=== PATIENT | male | born 1945 | race Hispanic/Latino ===

== ENCOUNTER 2018-11-21 08:36 | Outpatient (CLI) | payer BC, MEDICARE | END 2018-11-21 08:37 | disposition home or self-care (01) | LOC: C.PAT 08:36 | DX: R33.9 Retention of urine, unspecified (principal) ==

== ENCOUNTER 2018-11-30 05:46 | Inpatient (IN) | payer BC, MEDICARE ==
[2018-11-30 06:28] VITALS: BMI 32.1
[2018-11-30] MEDS ORDERED: Gentamicin 80 mg in 0.9% NS 160 MG/200 ML BAG IVPB ONE (07:40)
[2018-11-30] MEDS ORDERED: cefTRIAXone 1 gm 1 GM/100 ML BAG IVPB ONE (07:40)
[2018-11-30] MEDS ORDERED: Etomidate 20 mg/10ml Inj IV ONE (07:56)
[2018-11-30] MEDS ORDERED: Albuterol HFA 90 mcg/actuation (8 g) ONE (08:06)
[2018-11-30] MEDS ORDERED: Lidocaine Hydrochloride 5 ML INJ ONE (08:39)
[2018-11-30] MEDS ORDERED: ePHEDrine 50 mg/ml Inj ONE (08:40)
--- NOTE | 2018-11-30 09:42 | PCM.SURG1 ---
Surgeon's Initial Post Op Note - Surgeon's Notes Surgeon: Tiki Chin Rodding Machine Tender: none Type of Anesthesia: General LMA Pre-Operative Diagnosis: Urinary retention. BPH Operative Findings: same. Abnormal bladder mucosa Post-Operative Diagnosis: same Operation Performed: cysto. bladder bx and fulg. TURP Specimen/Specimens Removed: urine. prostate Estimated Blood Loss: EBL {In ML}: 60 Blood Products Given: N/A Post-Op Condition: Good Date of Surgery/Procedure: 11/30/18 Time of Surgery/Procedure: 09:30
[2018-11-30] MEDS ORDERED: Albuterol 0.083% Inhal Sol (2.5 mg/3 mL) UD INH PRN (10:24)
[2018-11-30] MEDS: HYDROmorphone 0.5 mg/0.5 ml ISec IVP PRN ×2 (10:39→10:47)
[2018-11-30] MEDS ORDERED: Potassium Ch 20mEq in D5-1/2NS 1,000 ML IV SCH (11:00)
--- NOTE | 2018-11-30 11:49 | CP.PCM.HP ---
<Juan Amaya - Last Filed: 11/30/18 13:55> History of Present Illness - History of Present Illness History of Present Illness: HOSPITALIST SERVICE 73M with a PMHx of HTN, HLD, Lymphoma (on chemo [id number], last dose 2wks ago) w/ Lung Mass R side, bladder lesions seen on previous cystoscopy, is admitted to hospitalist service s/p TURP and cystoscopy with biopsy. Patient experienced urinary retention, sensation of pain bladder fullness and inability to initiate stream after his second course of chemo at [facility] in [place]. Pt needed a pierre at that time, symptoms did not resolve, requiring him to seek urologic intervention. Pt reports no history of BPH or urine retention, denies any history of hematuria. Pt seen in PACU, feeling well, no acute complaints. 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[employer], 50ppy smoker, occasional drinker Allergies: Denies PMD: Dr Ariane Whiting [facility]: [facility] Present on Admission - Present on Admission Any Indicators Present on Admission: No Review of Systems - Review of Systems All systems: reviewed and no additional remarkable complaints except (as per HPI) Past Patient History - Infectious Disease Hx of Infectious Diseases: None - Past Medical History & Family History Past Medical History?: Yes - Past Social History Smoking Status: Former Smoker - CARDIAC Hx Cardiac Disorders: Yes Hx Hypercholesterolemia: Yes Hx Hypertension: Yes Hx Pacemaker: No Other/Comment: cardiac stent - PULMONARY Hx Respiratory Disorders: Yes Hx Chronic Obstructive Pulmonary Disease (COPD): Yes - NEUROLOGICAL Hx Neurological Disorder: No Hx Paralysis: No - HEENT Hx HEENT Problems: No - RENAL Hx Chronic Kidney Disease: No Hx Kidney Stones: Yes - ENDOCRINE/METABOLIC Hx Endocrine Disorders: No - HEMATOLOGICAL/ONCOLOGICAL Hx Blood Disorders: No Hx Blood Transfusions: No Hx Blood Transfusion Reaction: No Hx Cancer: Yes (LYMPHOMA) Hx Chemotherapy: Yes (CURRENTLY WILL HAVE RADIATION) - INTEGUMENTARY Hx Dermatological Problems: No - MUSCULOSKELETAL/RHEUMATOLOGICAL Hx Musculoskeletal Disorders: No Hx Fractures: Yes (LEFT WRIST CASTED AGE 13) Hx Osteoarthritis: Yes Other/Comment: HAD KNEE INJECTION - GASTROINTESTINAL Hx Gastrointestinal Disorders: Yes Hx Gastroesophageal Reflux: Yes - GENITOURINARY/GYNECOLOGICAL Hx Genitourinary Disorders: Yes Hx Hematuria: Yes Hx Prostate Problems: Yes (RETENTION) - PSYCHIATRIC Hx Psychophysiologic Disorder: Yes Hx Anxiety: Yes Hx Substance Use: No - SURGICAL HISTORY Hx Surgeries: Yes Hx Appendectomy: Yes Hx Cardiac Catheterization: Yes Hx Coronary Stent: Yes (X3) Hx Herniorrhaphy: Yes (UMBILICAL) Other/Comment: CYSTO LITHOTRIPSY - ANESTHESIA Hx Anesthesia: No Hx Anesthesia Reactions: No Hx Malignant Hyperthermia: No Has any member of the family had a problem w/ anesthesia?: No Meds Allergies/Adverse Reactions: Allergies Allergy/AdvReac Type Severity Reaction Status Date / Time No Known Allergies Allergy Verified 11/21/18 08:53 Physical Exam - Constitutional Appears: Non-toxic, No Acute Distress - Head Exam Head Exam: ATRAUMATIC, NORMAL INSPECTION - Eye Exam Eye Exam: EOMI, Normal appearance - ENT Exam ENT Exam: Mucous Membranes Moist - Respiratory Exam Respiratory Exam: Clear to Auscultation Bilateral. absent: Rales, Wheezes - Cardiovascular Exam Cardiovascular Exam: RRR, +S1, +S2, Systolic Murmur - GI/Abdominal Exam GI & Abdominal Exam: Soft (large obese abdomen). absent: Distended, Rebound, Tenderness - Exam Additional comments: no blood at meatus Pt on CBI, pierre pale pink, no clots passing - Extremities Exam Extremities exam: Negative for: pedal edema, tenderness - Neurological Exam Neurological exam: Alert, Oriented x3 - Psychiatric Exam Psychiatric exam: Normal Affect, Normal Mood - Skin Skin Exam: Normal Color, Warm Results - Vital Signs Recent Vital Signs: Last Vital Signs Temp 97.6 F 11/30/18 09:37 Pulse 65 11/30/18 10:30 Resp 16 11/30/18 10:30 BP 123/71 11/30/18 10:30 Pulse Ox 100 11/30/18 10:30 - Labs Labs: Laboratory Results - last 24 hr 11/30/18 08:48 Blood Type O POSITIVE Antibody Screen Negative Assessment & Plan - Assessment and Plan (Free Text) Assessment: 73M with a PMHx of HTN, HLD, Lymphoma (on chemo [id number], last dose 2wks ago) w/ Lung Mass R side, bladder lesions seen on previous cystoscopy, is admitted to hospitalist service s/p TURP and cystoscopy with biopsy with Dr Chin on 11/30 Plan: Urinary Retention -TURP with bladder bx done 11/[address] Chin received Rocephin and Getamycin IVPB -CBI, pierre in place -monitor H&H, I&Os -voiding trials upon removal of pierre pending Dr Chin recs -D5 1/2 NS with 20meq KCL -Percocet q4 prn HTN -Losartan 50 daily -Toprol 25 daily -HCTZ 12.5 daily -Monitor HLD -Zetia 10mg HS -Crestor 20mg HS PPx -HHD -PTX 20 daily -post op, Holding anticoag pending Urology recs CK PGY1 dw Dr Rubio <Dee Rubio - Last Filed: 11/30/18 14:26> Results - Vital Signs Recent Vital Signs: Last Vital Signs Temp 97.6 F 11/30/18 09:37 Pulse 62 11/30/18 14:00 Resp 14 11/30/18 14:00 BP 97/53 L 11/30/18 14:00 Pulse Ox 100 11/30/18 14:00 - Labs Labs: Laboratory Results - last 24 hr 11/30/18 08:48 Blood Type O POSITIVE Antibody Screen Negative Attending/Attestation - Attestation I have personally seen and examined this patient.: Yes I have fully participated in the care of the patient.: Yes I have reviewed all pertinent clinical information: Yes Notes (Text): seen and examined,no complain,s/p TURP for urinary retention Getting CBI continue home meds and follow up with Dr Chin
[2018-11-30] MEDS: Oxycodone/Acetaminophen 5/325 mg Tab PO PRN (15:14)
[2018-11-30 16:15] LABS: HEMOGLOBIN 11.7 g/dL (12.0-18.0); MEAN CELL VOLUME 83.7 fL (80.0-94.0); MEAN CORPUSCULAR HEMOGLOBIN 26.8 pg (27.0-31.0); MEAN PLATELET VOLUME 7.8 fL (7.2-11.7); RBC 4.35 Mil/uL (4.40-5.90); RED CELL DISTRIBUTION WIDTH 18.4 % (11.5-14.5); WHITE BLOOD COUNT 16.4 K/uL (4.8-10.8)
[2018-11-30 16:35] LABS: ALB/GLOB RATIO 1.5 (1.0-2.1); ALBUMIN 3.8 g/dL (3.5-5.0); ALT/SGPT 34 U/L (21-72); AST/SGOT 21 U/L (17-59); BLOOD UREA NITROGEN 15 mg/dL (9-20); CALCIUM 8.8 mg/dl (8.6-10.4); GFR NON-AFRICAN AMERICAN > 60
[2018-11-30 17:11] VITALS: RESP 20
[2018-11-30] MEDS ORDERED: Benzocaine/Menthol (Cepacol) Lozenge MT PRN (19:04)
[2018-12-01] MEDS ORDERED: Benzocaine/Menthol (Cepacol) Lozenge MT ONE (01:02)
[2018-12-01 07:19] LABS: BASO % 0.2 % (0.0-2.0); EOS # 0.2 K/uL (0.0-0.7); EOS % 0.9 % (0.0-4.0); HEMOGLOBIN 12.1 g/dL (12.0-18.0); LYMPH # 0.8 K/uL (1.0-4.3); LYMPH % 4.1 % (20.0-40.0); MEAN CELL VOLUME 83.2 fL (80.0-94.0); MEAN CORPUSCULAR HEMOGLOBIN 27.3 pg (27.0-31.0); MEAN CORPUSCULAR HGB CONC 32.9 g/dL (33.0-37.0); MEAN PLATELET VOLUME 7.9 fL (7.2-11.7); MONO # 1.7 K/uL (0.0-0.8); MONO % 8.9 % (0.0-10.0); NEUT % 85.9 % (50.0-75.0); NRBC % 0.1 % (0.0-2.0); PLATELET COUNT 193 K/uL (130-400); RBC 4.42 Mil/uL (4.40-5.90); RED CELL DISTRIBUTION WIDTH 18.5 % (11.5-14.5); WHITE BLOOD COUNT 18.7 K/uL (4.8-10.8)
[2018-12-01 07:32] LABS: ALB/GLOB RATIO 1.4 (1.0-2.1); ALT/SGPT 27 U/L (21-72); AST/SGOT 25 U/L (17-59); BLOOD UREA NITROGEN 13 mg/dL (9-20); GFR NON-AFRICAN AMERICAN > 60
[2018-12-01 08:02] VITALS: BP 144/67; PULSE 90; TEMP 98; O2SAT 96
[2018-12-01 09:43] LABS: BANDS 1 % (0-2); EOSINOPHIL 2 % (0-4); LYMPHOCYTE 4 % (20-40); MONOCYTE 8 % (0-10); NEUTROPHIL 85 % (50-75); PLATELET ESTIMATE NORMAL (NORMAL); TOTAL CELLS COUNTED 100
[2018-12-01 09:44] LABS: HYPOCHROMIC SLIGHT; LARGE PLATELETS PRESENT; POLYCHROMIC SLIGHT; TOXIC GRANULATION PRESENT
[2018-12-01 09:45] LABS: ANISOCYTOSIS MODERATE; OVALOCYTES SLIGHT; POIKILOCYTOSIS SLIGHT; TEARDROP CELLS SLIGHT
[2018-12-01] MEDS ORDERED: Metoprolol Succinate 25 mg XL Tab PO SCH (10:00)
[2018-12-01] MEDS ORDERED: Pantoprazole 20 mg EC Tab PO SCH (10:00)
[2018-12-01] MEDS: Oxycodone/Acetaminophen 5/325 mg Tab PO PRN (10:12)
[2018-12-01] MEDS: Ipratropium 0.02% Inhal Soln (0.5 mg/2.5 ml) UD IH SCH ×2 (12:27→12:30)
[2018-12-01] MEDS ORDERED: Magnesium Hydroxide Susp 30 ml UD PO ONE (13:15)
[2018-12-01] MEDS ORDERED: Pneumococcal 23-Valent Vaccine IM ONE (13:43)
--- NOTE | 2018-12-01 17:40 | CP.PCM.DIS ---
<Zunilda Verduzco P - Last Filed: 12/01/18 20:35> Provider - Provider Date of Admission: 11/30/18 10:16 Attending physician: Dee Rubio MD Consults: 11/30/18 14:22 Physician Consult Routine Comment: Consulting Provider: Lynette Chin Consulting Physician: Lynette Chin Reason for Consult: Post TURP Time Spent in preparation of Discharge (in minutes): 35 Diagnosis - Discharge Diagnosis (1) S/P cystoscopy Status: Acute (2) S/P TURP Status: Acute (3) Urinary retention Status: Acute Hospital Course - Lab Results Lab Results: Micro Results 11/30/18 11:12 Urine,Pierre Urine Culture - Preliminary Gram Negative Joe Gram Positive Cocci Most Recent Lab Values WBC 18.7 K/uL (4.8-10.8) H 12/01/18 07:16 RBC 4.42 Mil/uL (4.40-5.90) 12/01/18 07:16 Hgb 12.1 g/dL (12.0-18.0) 12/01/18 07:16 Hct 36.8 % (35.0-51.0) 12/01/18 07:16 MCV 83.2 fL (80.0-94.0) 12/01/18 07:16 MCH 27.3 pg (27.0-31.0) 12/01/18 07:16 MCHC 32.9 g/dL (33.0-37.0) L 12/01/18 07:16 RDW 18.5 % (11.5-14.5) H 12/01/18 07:16 Plt Count 193 K/uL (130-400) 12/01/18 07:16 MPV 7.9 fL (7.2-11.7) 12/01/18 07:16 Neut % (Auto) 85.9 % (50.0-75.0) H 12/01/18 07:16 Lymph % (Auto) 4.1 % (20.0-40.0) L 12/01/18 07:16 [place] % (Auto) 8.9 % (0.0-10.0) 12/01/18 07:16 Eos % (Auto) 0.9 % (0.0-4.0) 12/01/18 07:16 Baso % (Auto) 0.2 % (0.0-2.0) 12/01/18 07:16 Neut # (Auto) 16.0 K/uL (1.8-7.0) H 12/01/18 07:16 Lymph # (Auto) 0.8 K/uL (1.0-4.3) L 12/01/18 07:16 [place] # (Auto) 1.7 K/uL (0.0-0.8) H 12/01/18 07:16 Eos # (Auto) 0.2 K/uL (0.0-0.7) 12/01/18 07:16 Baso # (Auto) 0.0 K/uL (0.0-0.2) 12/01/18 07:16 Neutrophils % (Manual) 85 % (50-75) H 12/01/18 07:16 Band Neutrophils % 1 % (0-2) 12/01/18 07:16 Lymphocytes % (Manual) 4 % (20-40) L 12/01/18 07:16 Monocytes % (Manual) 8 % (0-10) 12/01/18 07:16 Eosinophils % (Manual) 2 % (0-4) 12/01/18 07:16 Toxic Granulation Present 12/01/18 07:16 Platelet Estimate Normal (NORMAL) 12/01/18 07:16 Large Platelets Present 12/01/18 07:16 Polychromasia Slight 12/01/18 07:16 Hypochromasia (manual) Slight 12/01/18 07:16 Poikilocytosis (manual Slight 12/01/18 07:16 Anisocytosis (manual) Moderate 12/01/18 07:16 Tear Drop Cells Slight 12/01/18 07:16 Ovalocytes Slight 12/01/18 07:16 Sodium 136 mmol/L (132-148) 12/01/18 07:06 Potassium 4.3 mmol/L (3.6-5.2) 12/01/18 07:06 Chloride 100 mmol/L (98-107) 12/01/18 07:06 Carbon Dioxide 26 mmol/L (22-30) 12/01/18 07:06 Anion Gap 15 (10-20) 12/01/18 07:06 BUN 13 mg/dL (9-20) 12/01/18 07:06 Creatinine 0.8 mg/dL (0.8-1.5) 12/01/18 07:06 Est GFR ( Amer) > 60 12/01/18 07:06 Est GFR (Non-Af Amer) > 60 12/01/18 07:06 Random Glucose 127 mg/dL (75-110) H 12/01/18 07:06 Hemoglobin A1c 6.5 % (4.2-6.5) 12/01/18 07:06 Calcium 9.0 mg/dl (8.6-10.4) 12/01/18 07:06 Phosphorus 2.8 mg/dL (2.5-4.5) 12/01/18 07:06 Magnesium 1.6 mg/dL (1.6-2.3) 12/01/18 07:06 Total Bilirubin 0.5 mg/dL (0.2-1.3) 12/01/18 07:06 AST 25 U/L (17-59) 12/01/18 07:06 ALT 27 U/L (21-72) 12/01/18 07:06 Alkaline Phosphatase 99 U/L (38-126) 12/01/18 07:06 Total Protein 6.9 g/dL (6.3-8.3) 12/01/18 07:06 Albumin 4.0 g/dL (3.5-5.0) 12/01/18 07:06 Globulin 2.9 gm/dL (2.2-3.9) 12/01/18 07:06 Albumin/Globulin Ratio 1.4 (1.0-2.1) 12/01/18 07:06 Blood Type O POSITIVE 11/30/18 08:48 Antibody Screen Negative 11/30/18 08:48 - Hospital Course Hospital Course: On admission: 73M with a PMHx of HTN, HLD, Lymphoma (on chemo [id number], last dose 2wks ago) w/ Lung Mass R side, bladder lesions seen on previous cystoscopy, is admitted to hospitalist service s/p TURP and cystoscopy with biopsy. Patient experienced urinary retention, sensation of pain bladder fullness and inability to initiate stream after his second course of chemo at [facility] in [place]. Pt needed a pierre at that time, symptoms did not resolve, requiring him to seek urologic intervention. Pt reports no history of BPH or urine retention, denies any history of hematuria. Pt seen in PACU, feeling well, no acute complaints. Hospitalization: Patient was admitted for Urinary Retention. He was taken to OR by Dr. Chin, urology. Patient had TURP with bladder bx done on 11/30/18 (see full operative report). Patient received Rocephin and Getamycin IVPB intraoperatively. Following procedure, patient had continuous bladder irrigation overnight, he was then switched to pierre with leg bag in the morning. H&H were monitored and remained stable. This is a summary of events. For full record, check EMR. Discarge instructions: Patient is stable for discharge for Dr. Chin and Dr. Mustafa. Patient is being discharged with the following prescriptions: Levaquin 500mg three times a day Percocet 1 tab every 4 hours as needed for pain Continue your home medications as usual. You have confirmed that you have enough medicine at home and do not need refills. Patient is to Call Dr. Lynette Chin's office on Monday to schedule a follow up appointment. Return to the Emergency Room for new or worsening symptoms. Discharge Exam - Head Exam Head Exam: ATRAUMATIC, NORMAL INSPECTION - Additional Findings Additional findings: - Constitutional Appears: Non-toxic, No Acute Distress - Head Exam Head Exam: ATRAUMATIC, NORMAL INSPECTION - Eye Exam Eye Exam: EOMI, Normal appearance - ENT Exam ENT Exam: Mucous Membranes Moist - Respiratory Exam Respiratory Exam: Clear to Auscultation Bilateral. absent: Rales, Wheezes - Cardiovascular Exam Cardiovascular Exam: RRR, +S1, +S2, Systolic Murmur - GI/Abdominal Exam GI & Abdominal Exam: Soft (large obese abdomen). absent: Distended, Rebound, Tenderness - Exam Additional comments: no blood at meatus Pt on CBI, pierre pale pink, no clots passing - Extremities Exam Extremities exam: Negative for: pedal edema, tenderness - Neurological Exam Neurological exam: Alert, Oriented x3 - Psychiatric Exam Psychiatric exam: Normal Affect, Normal Mood - Skin Skin Exam: Normal Color, Warm Discharge Plan - Follow Up Plan Condition: GOOD Disposition: HOME/ ROUTINE Instructions: How to Care for Your Pierre Catheter, Male, Levofloxacin (Systemic), Transurethral Resection of the Prostate (DC), Urinary Retention (DC) Additional Instructions: Patient is stable for discharge for Dr. Chin and Dr. Mustafa. Patient is being discharged with the following prescriptions: Levaquin 500mg three times a day Percocet 1 tab every 4 hours as needed for pain Continue your home medications as usual. You have confirmed that you have enough medicine at home and do not need refills. Patient is to Call Dr. Lynette Chin's office on Monday to schedule a follow up appointment. Return to the Emergency Room for new or worsening symptoms. Referrals: Lynetet Chin MD [Staff Provider] - <Huey Mustafa - Last Filed: 12/02/18 07:32> Provider - Provider Date of Admission: 11/30/18 10:16 Attending physician: Dee Rubio MD Consults: 11/30/18 14:22 Physician Consult Routine Comment: Consulting Provider: Lynette Chin Consulting Physician: Lynette Chin Reason for Consult: Post TURP Hospital Course - Lab Results Lab Results: Micro Results 11/30/18 11:12 Urine,Pierre Urine Culture - Preliminary Gram Negative Joe Gram Positive Cocci Most Recent Lab Values WBC 18.7 K/uL (4.8-10.8) H 12/01/18 07:16 RBC 4.42 Mil/uL (4.40-5.90) 12/01/18 07:16 Hgb 12.1 g/dL (12.0-18.0) 12/01/18 07:16 Hct 36.8 % (35.0-51.0) 12/01/18 07:16 MCV 83.2 fL (80.0-94.0) 12/01/18 07:16 MCH 27.3 pg (27.0-31.0) 12/01/18 07:16 MCHC 32.9 g/dL (33.0-37.0) L 12/01/18 07:16 RDW 18.5 % (11.5-14.5) H 12/01/18 07:16 Plt Count 193 K/uL (130-400) 12/01/18 07:16 MPV 7.9 fL (7.2-11.7) 12/01/18 07:16 Neut % (Auto) 85.9 % (50.0-75.0) H 12/01/18 07:16 Lymph % (Auto) 4.1 % (20.0-40.0) L 12/01/18 07:16 Lamoure % (Auto) 8.9 % (0.0-10.0) 12/01/18 07:16 Eos % (Auto) 0.9 % (0.0-4.0) 12/01/18 07:16 Baso % (Auto) 0.2 % (0.0-2.0) 12/01/18 07:16 Neut # (Auto) 16.0 K/uL (1.8-7.0) H 12/01/18 07:16 Lymph # (Auto) 0.8 K/uL (1.0-4.3) L 12/01/18 07:16 [place] # (Auto) 1.7 K/uL (0.0-0.8) H 12/01/18 07:16 Eos # (Auto) 0.2 K/uL (0.0-0.7) 12/01/18 07:16 Baso # (Auto) 0.0 K/uL (0.0-0.2) 12/01/18 07:16 Neutrophils % (Manual) 85 % (50-75) H 12/01/18 07:16 Band Neutrophils % 1 % (0-2) 12/01/18 07:16 Lymphocytes % (Manual) 4 % (20-40) L 12/01/18 07:16 Monocytes % (Manual) 8 % (0-10) 12/01/18 07:16 Eosinophils % (Manual) 2 % (0-4) 12/01/18 07:16 Toxic Granulation Present 12/01/18 07:16 Platelet Estimate Normal (NORMAL) 12/01/18 07:16 Large Platelets Present 12/01/18 07:16 Polychromasia Slight 12/01/18 07:16 Hypochromasia (manual) Slight 12/01/18 07:16 Poikilocytosis (manual Slight 12/01/18 07:16 Anisocytosis (manual) Moderate 12/01/18 07:16 Tear Drop Cells Slight 12/01/18 07:16 Ovalocytes Slight 12/01/18 07:16 Sodium 136 mmol/L (132-148) 12/01/18 07:06 Potassium 4.3 mmol/L (3.6-5.2) 12/01/18 07:06 Chloride 100 mmol/L (98-107) 12/01/18 07:06 Carbon Dioxide 26 mmol/L (22-30) 12/01/18 07:06 Anion Gap 15 (10-20) 12/01/18 07:06 BUN 13 mg/dL (9-20) 12/01/18 07:06 Creatinine 0.8 mg/dL (0.8-1.5) 12/01/18 07:06 Est GFR ( Amer) > 60 12/01/18 07:06 Est GFR (Non-Af Amer) > 60 12/01/18 07:06 Random Glucose 127 mg/dL (75-110) H 12/01/18 07:06 Hemoglobin A1c 6.5 % (4.2-6.5) 12/01/18 07:06 Calcium 9.0 mg/dl (8.6-10.4) 12/01/18 07:06 Phosphorus 2.8 mg/dL (2.5-4.5) 12/01/18 07:06 Magnesium 1.6 mg/dL (1.6-2.3) 12/01/18 07:06 Total Bilirubin 0.5 mg/dL (0.2-1.3) 12/01/18 07:06 AST 25 U/L (17-59) 12/01/18 07:06 ALT 27 U/L (21-72) 12/01/18 07:06 Alkaline Phosphatase 99 U/L (38-126) 12/01/18 07:06 Total Protein 6.9 g/dL (6.3-8.3) 12/01/18 07:06 Albumin 4.0 g/dL (3.5-5.0) 12/01/18 07:06 Globulin 2.9 gm/dL (2.2-3.9) 12/01/18 07:06 Albumin/Globulin Ratio 1.4 (1.0-2.1) 12/01/18 07:06 Blood Type O POSITIVE 11/30/18 08:48 Antibody Screen Negative 11/30/18 08:48 Attending/Attestation - Attestation I have personally seen and examined this patient.: Yes I have fully participated in the care of the patient.: Yes I have reviewed all pertinent clinical information, including history, physical exam and plan: Yes Notes (Text): 12/02/18 07:29 Medical attending: Patient was seen and examined with the emergency medical services coordinator. Reviewed together the above note and agree with the above Patient is status post TURP and overnight had CBI. He was doing well at rest. He was not short of breath and did not report chest pain. He did report tenderness from the pierre catheter and needed pain medication for this. He also recived an extra dose of rocephin IV before leaving as well Huey Mustafa
[2018-12-02] MEDS ORDERED: Tiotropium 18 mcg Cap For Inhalation INH SCH (08:00)
--- NOTE | 2018-12-05 21:02 | OP ---
PROCEDURE DATE: 11/30/2018 PREOPERATIVE DIAGNOSES: Urinary retention. Enlarged prostate. History of bladder carcinoma. POSTOPERATIVE DIAGNOSES: Urinary retention. Enlarged prostate. History of bladder carcinoma. Abnormal bladder mucosa. PROCEDURES: Cystoscopy. Bladder biopsy and fulguration. Transurethral resection of prostate. OPERATING SURGEON: Lynette Chin MD DESCRIPTION OF PROCEDURE: As follows: The patient received perioperative antibiotics. The patient was placed in lithotomy position. Anesthesia was applied by the anesthesiologist. A 22-[place] cystoscope sheath was introduced under direct vision. Urethra, prostate and bladder were inspected with 30-degree and 70-degree lens. FINDINGS: There was no stricture in the anterior urethra. There was evidence of trilobar prostatic hypertrophy. Prostatic urethra was 4 cm in length and occlusive. The bladder was noted to be moderately trabeculated. There was intravesical middle lobe enlargement of the prostate which obscured the ureteral orifice. There was abnormal mucosa located on the left posterior wall of the bladder. There was some papillary changes of this abnormal mucosa. This may represent inflammatory and/or neoplastic changes. There was no bladder stone. There was no bladder diverticulum. There were no other mucosal lesions within the bladder. Additionally there was mild diffuse cystitis. The area of the abnormal mucosa was biopsied using cold cup biopsy forceps. Fulguration was performed with electrocautery. The cystoscope was removed. A 26-[place] continuous flow resectoscope sheath was introduced under direct vision using the visual obturator. The resectoscope was inserted. The obstructing prostatic tissue was resected. The resection was begun at the level of the bladder neck on the floor. Thereafter the anterior roof tissue was resected. Subsequently, each lateral lobe was resected. Finally, the floor and apical prostatic tissue were resected with the surgeon's index finger within the [place] drape in the rectum. The prostatic chips were removed using the [place] scientific evacuator. The bladder was reinspected. Hemostasis was complete. Hemostasis had been achieved after each section of the resection. There were no residual prostatic chips. The resectoscope and sheath removed. Jeong catheter was inserted. Bladder drainage was clear. Exam under anesthesia/anorectal examination was performed. There was no bladder mass. There was no bladder fixation. There was prostatic enlargement noted prior to the resection. The patient was returned to supine position. The patient tolerated procedure without complication. The patient was transferred to the recovery room in satisfactory condition. Lynette MD Giuseppe cc: Didier Sharif MD
--- NOTE | 2018-12-05 21:15 | CON ---
DATE: 11/30/2018 UROLOGY CONSULTATION HISTORY OF PRESENT ILLNESS: The patient is a 73-year-old male with urinary retention. The patient is in otherwise fair health. The patient has history of hypertension. The patient has history of previous urolithiasis. The patient has history of previous bladder cancer. Mr. Maxwell is currently undergoing therapy for lung carcinoma. The patient has had multiple chemotherapy cycles. He is also scheduled to begin radiation therapy. The patient now presents with urinary retention. He has had urinary retention for the past month. The patient has had previous trial of voiding. The patient has been treated with finasteride and with tamsulosin. However, retention has recurred after each trial of voiding with catheter removal. Catheter has been inserted. The patient is now admitted to the hospital. ALLERGIES: SEE ATTACHED REPORTS. MEDICATIONS: See attached reports. LABORATORY DATA: Reviewed. Anemia is noted. PHYSICAL EXAMINATION: GENERAL: The patient is a well-developed, well-nourished elderly male, appearing stated age. The patient is awake and alert. ABDOMEN: Soft. Overweight. Nontender, nondistended. No masses or organomegaly. BACK: No CVA tenderness. GENITALIA: Without inflammation. Normal male. Scrotal contents without inflammation. Jeong catheter in place draining guido urine. IMPRESSION: A 73-year-old male with urinary retention. Lung cancer. Enlarged prostate. Etiology of urinary retention is due to bladder outlet obstruction, also possible detrusor muscle hypofunction. The patient also has history of urolithiasis. The patient also has history of bladder cancer. PLAN: Plan for cystoscopy. Transurethral resection of the prostate. Perioperative antibiotic therapy. Further therapy to follow according to the patient's clinical course. Lynette Chin MD
== END 2018-12-01 15:59 | disposition home or self-care (01) | DRG 667 ==
LOC: C.SDS 05:46 → C.9S 10:16 → C.3T 17:03
PROVIDERS: ADMIT Urology; ATTEND Internal Medicine
PROC: 0T5B8ZZ Destruction of Bladder, Via Natural or Artificial Opening Endoscopic (ICD-10-PCS; 2018-11-30)
PROC: 0VT08ZZ Resection of Prostate, Via Natural or Artificial Opening Endoscopic (ICD-10-PCS; 2018-11-30)
PROC: 0TBB8ZX Excision of Bladder, Via Natural or Artificial Opening Endoscopic, Diagnostic (ICD-10-PCS; principal; 2018-11-30 07:30)
DX: N30.80 Other cystitis without hematuria (principal); R33.9 Retention of urine, unspecified; N40.1 Benign prostatic hyperplasia with lower urinary tract symptoms; R33.8 Other retention of urine; Z85.118 Personal history of other malignant neoplasm of bronchus and lung; Z85.72 Personal history of non-Hodgkin lymphomas; Z95.5 Presence of coronary angioplasty implant and graft; J44.9 Chronic obstructive pulmonary disease, unspecified; I10 Essential (primary) hypertension; F17.200 Nicotine dependence, unspecified, uncomplicated; E78.5 Hyperlipidemia, unspecified